=== PATIENT | female | born 1975 ===

== ENCOUNTER 2017-04-07 15:53 | Emergency (ER) | payer OTHER ==
[2017-04-07 16:04] VITALS: BMI 31.4
[2017-04-07 16:07] VITALS: TEMP 99.3
[2017-04-07] MEDS ORDERED: Sodium Chloride 0.9% 1,000 ML IV STA (16:50)
[2017-04-07 17:05] LABS: ADD MANUAL DIFF? NO
--- NOTE | 2017-04-07 17:09 | ED PDOC ---
Arrival/HPI - General Chief Complaint: Headache Time Seen by Provider: 04/07/17 16:20 Historian: Patient - History of Present Illness Narrative History of Present Illness (Text): 04/07/17 16:54 42yo female with PMHx of Asthma present with complaint of nausea, occipital headache, blurry vision and dizziness. States she was seen here last year for same complaint and was referred to ENT. she saw ENT and was told that everything was normal. States her symptoms started yesterday. she did not take any medication for her symptoms. She denies photophobia, vomiting, focal weakness, abdominal pain, diarrhea, sick contact, aphasia, dysarthria, trauma, any other complaint. Past Medical History - Provider Review Nursing Documentation Reviewed: Yes - Infectious Disease Hx of Infectious Diseases: None - Tetanus Immunization Tetanus Immunization: Unknown - Cardiac Hx Cardiac Disorders: No - Pulmonary Hx Respiratory Disorders: Yes Hx Asthma: Yes - Neurological Hx Neurological Disorder: No - HEENT Hx HEENT Disorder: No - Renal Hx Renal Disorder: No Other/Comment: kidney infection - Endocrine/Metabolic Hx Endocrine Disorders: No - Hematological/Oncological Hx Blood Disorders: Yes Hx Anemia: Yes Hx Blood Transfusions: Yes (january 2014) Hx Blood Transfusion Reaction: No - Integumentary Hx Dermatological Disorder: No Hx Basal Cell Carcinoma: No - Musculoskeletal/Rheumatological Hx Musculoskeletal Disorders: No Hx Falls: No - Gastrointestinal Hx Gastrointestinal Disorders: Yes Hx Gastritis: Yes Hx Gastroesophageal Reflux: Yes - Genitourinary/Gynecological Hx Genitourinary Disorders: No - Psychiatric Hx Psychophysiologic Disorder: No Hx Substance Use: No - Past Surgical History Past Surgical History: No Previous - Surgical History Hx Hysterectomy: Yes Other/Comment: laparoscopy - Anesthesia Hx Anesthesia: Yes Hx Anesthesia Reactions: No - Suicidal Assessment Feels Threatened In Home Enviroment: No Family/Social History - Physician Review Nursing Documentation Reviewed: Yes Family/Social History: Unknown Family HX Smoking Status: Never Smoked Hx Alcohol Use: No Hx Substance Use: No Hx Substance Use Treatment: No Allergies/Home Meds Allergies/Adverse Reactions: Allergies Penicillins Allergy (Verified 04/07/17 16:04) RASH shell fish Allergy (Uncoded 04/07/17 16:04) PAIN Home Medications: Home Meds Medication Instructions Recorded Confirmed Dexlansoprazole [Dexilant] 60 mg PO TID 12/16/16 04/07/17 Fluticasone Nasal [Flonase] 1 spr IN DAILY 12/16/16 04/07/17 Levocetirizine Dihydrochloride 5 mg PO HS 12/16/16 04/07/17 [Xyzal] Montelukast Sodium [Singulair] 20 mg PO HS 12/16/16 04/07/17 Naproxen [Naprosyn] 500 mg PO BID 12/16/16 04/07/17 Sucralfate [Carafate] 1 gm PO TID 12/16/16 04/07/17 Albuterol HFA [Ventolin HFA 90 1 inh INH TID 04/07/17 04/07/17 mcg/actuation (8 g)] Famotidine [Pepcid] 40 mg PO TID 04/07/17 04/07/17 Mometasone/Formoterol [Dulera 200 1 inh INH BID 04/07/17 04/07/17 Mcg/5 Mcg Inhaler] Tiotropium [place] [Spiriva 1 inh INH BID 04/07/17 04/07/17 Respimat] Review of Systems - Physician Review All systems were reviewed & negative as marked: Yes - Review of Systems Constitutional: Normal Eyes: Normal ENT: Normal Respiratory: Normal Cardiovascular: Normal Gastrointestinal: Nausea. absent: Abdominal Pain, Constipation, Diarrhea, Vomiting, Hematochezia, Hematemesis Genitourinary Female: Normal Musculoskeletal: Normal Skin: Normal Neurological: Headache, Dizziness Endocrine: Normal Hemo/Lymphatic: Normal Psychiatric: Normal Physical Exam Vital Signs Reviewed: Yes Vital Signs Temp Pulse Resp BP Pulse Ox 04/07/17 21:04 80 16 117/82 96 04/07/17 20:00 78 17 118/81 96 04/07/17 17:43 79 18 115/79 95 04/07/17 16:04 99.3 F 77 16 117/82 95 Temperature: Afebrile Blood Pressure: Normal Pulse: Regular Respiratory Rate: Normal Appearance: Positive for: Well-Appearing, Non-Toxic, Comfortable Pain Distress: None Mental Status: Positive for: Alert and Oriented X 3 - Systems Exam Head: Present: Atraumatic, Normocephalic Pupils: Present: PERRL Extroacular Muscles: Present: EOMI Conjunctiva: Present: Normal Mouth: Present: Moist Mucous Membranes Neck: Present: Normal Range of Motion Respiratory/Chest: Present: Clear to Auscultation, Good Air Exchange. No: Respiratory Distress, Accessory Muscle Use Cardiovascular: Present: Regular Rate and Rhythm, Normal S1, S2. No: Murmurs Abdomen: Present: Normal Bowel Sounds. No: Tenderness, Distention, Peritoneal Signs, Rebound, Guarding, McBurney's Point Tender, Rovsing's Sign Present Back: Present: Normal Inspection Upper Extremity: Present: Normal Inspection. No: Cyanosis, Edema Lower Extremity: Present: Normal Inspection. No: Edema Neurological: Present: GCS=15, CN II-XII Intact, Speech Normal, Motor Func Grossly Intact, Normal Sensory Function, Normal Cerebellar Funct, Norm Deep Tendon Reflexes, Gait Normal, Memory Normal, Other (No focal neurological weakness) Skin: Present: Warm, Dry, Normal Color. No: Rashes Psychiatric: Present: Alert, Oriented x 3, Normal Insight, Normal Concentration Medical Decision Making ED Course and Treatment: 04/10/17 12:[address] was negative and lab was unremarkable. Result was DW the pt,. She was DC home with [facility] and referred to a neurologist. - Lab Interpretations Lab Results: 04/07/17 17:00 04/07/17 17:00 Lab Results 04/07/17 18:00: Urine Color Yellow, Urine Appearance Clear, Urine pH 6.0, Ur Specific [place] 1.025, Urine Protein Negative, Urine Glucose (UA) Negative, Urine Ketones Negative, Urine Blood Trace-lysed H, Urine Nitrate Negative, Urine Bilirubin Negative, Urine Urobilinogen 0.2, Ur Leukocyte Esterase Negative , Urine RBC 0 - 2, Urine WBC 0 - 2, Ur Epithelial Cells 0 - 2, Urine Bacteria Occ 04/07/17 17:00: Sodium 141, Potassium 4.4, Chloride 106, Carbon Dioxide 24, Anion Gap 15, BUN 18, Creatinine 0.7, Est GFR ( Amer) > 60, Est GFR (Non- Af Amer) > 60, Random Glucose 79, Calcium 9.2, Total Bilirubin 0.9, AST 36, ALT 39, Alkaline Phosphatase 49, Lactate Dehydrogenase 627, Total Creatine Kinase 154, Troponin I < 0.01, Total Protein 7.8, Albumin 4.2, Globulin 3.7, Albumin/ Globulin Ratio 1.1, Lipase 156 04/07/17 17:00: PT 10.7, INR 0.99, APTT 26.3 04/07/17 17:00: WBC 7.5, RBC 4.25, Hgb 13.0, Hct 38.3, MCV 90.1, MCH 30.6, MCHC 33.9, RDW 13.1, Plt Count 285, MPV 9.3, Gran % 58.4, Lymph % (Auto) 32.5, [place] % (Auto) 6.5 H, Eos % (Auto) 2.3, Baso % (Auto) 0.3, Gran # 4.39, Lymph # 2.4, [place] # 0.5, Eos # 0.2, Baso # 0.02 - RAD Interpretation Radiology Orders: 04/07/17 18:16 HEAD W/O CONTRAST [CT] Stat - Medication Orders Current Medication Orders: Discontinued Medications Sodium Chloride (Sodium Chloride 0.9%) 1,000 mls @ 999 mls/hr IV .Q1H1M STA Stop: 04/07/17 17:50 Last Admin: 04/07/17 17:04 Dose: 999 mls/hr Ketorolac Tromethamine (Toradol) 30 mg IVP STAT STA Stop: 04/07/17 18:03 Last Admin: 04/07/17 18:13 Dose: 30 mg Meclizine HCl (Antivert) 25 mg PO STAT STA Stop: 04/07/17 16:51 Last Admin: 04/07/17 17:08 Dose: 25 mg Metoclopramide HCl (Reglan) 10 mg IVP STAT STA Stop: 04/07/17 16:51 Last Admin: 04/07/17 17:07 Dose: 10 mg Disposition/Present on Arrival - Present on Arrival Any Indicators Present on Arrival: No History of DVT/PE: No History of Uncontrolled Diabetes: No Urinary Catheter: No History of Decub. Ulcer: No History Surgical Site Infection Following: None - Disposition Have Diagnosis and Disposition been Completed?: Yes Diagnosis: Headache, Nausea & vomiting Disposition: HOME/ ROUTINE Disposition Time: 20:30 Patient Plan: Discharge Condition: STABLE Discharge Instructions (ExitCare): Acute Headache (ED) Referrals: Kia Glez MD [Primary Care Provider] - Follow up with primary
[2017-04-07 17:14] LABS: BASO # 0.02 K/mm3 (0.0-2.0); BASO % 0.3 % (0.0-3.0); EOS # 0.2 (0.0-0.7); EOS % 2.3 % (1.5-5.0); GRAN # 4.39 (1.4-6.5); GRAN % 58.4 % (50.0-68.0); HEMATOCRIT 38.3 % (36.0-48.0); LYMPH # 2.4 (1.2-3.4); LYMPH % 32.5 % (22.0-35.0); MEAN CELL VOLUME 90.1 fL (80.0-105.0); MEAN CORPUSCULAR HEMOGLOBIN 30.6 pg (25.0-35.0); MEAN CORPUSCULAR HGB CONC 33.9 g/dl (31.0-37.0); MEAN PLATELET VOLUME 9.3 fl (7.0-11.0); MONO # 0.5 (0.1-0.6); MONO % 6.5 % (1.0-6.0); PLATELET COUNT 285 10^3/uL (120.0-450.0); RED CELL DISTRIBUTION WIDTH 13.1 % (11.5-14.5); WHITE BLOOD COUNT 7.5 10^3/ul (4.5-11.0)
[2017-04-07 17:21] LABS: ALB/GLOB RATIO 1.1 (1.1-1.8); ALKALINE PHOSPHATASE 49 U/L (38-133); ALT/SGPT 39 U/L (7-56); AST/SGOT 36 U/L (15-39); BILIRUBIN,TOTAL 0.9 mg/dL (0.2-1.3); BLOOD UREA NITROGEN 18 mg/dL (7-21); CALCIUM 9.2 mg/dL (8.4-10.5); CARBON DIOXIDE 24 mmol/L (21-33); CHLORIDE 106 mmol/L (98-107); GFR AFRICAN-AMERICAN > 60; GLUCOSE,RANDOM 79 mg/dL (70-110); LIPASE 156 U/L (23-300); POTASSIUM 4.4 mmol/L (3.6-5.0); SODIUM 141 mmol/L (132-148); TOTAL PROTEIN 7.8 g/dL (5.8-8.3)
[2017-04-07 17:22] LABS: INR 0.99 (0.93-1.08); PARTIAL THROMBOPLASTIN TIME 26.3 Seconds (23.7-30.8)
[2017-04-07 17:33] LABS: TROPONIN I < 0.01 ng/mL
[2017-04-07 18:31] LABS: URINE APPEARANCE CLEAR (CLEAR); URINE BILIRUBIN NEGATIVE (NEGATIVE); URINE BLOOD TRACE-LYSED (NEGATIVE); URINE COLOR YELLOW (YELLOW); URINE GLUCOSE (UA) NEGATIVE (NEGATIVE); URINE KETONE NEGATIVE (NEGATIVE); URINE LEUKOCYTE ESTERASE NEGATIVE Leu/uL (NEGATIVE); URINE PROTEIN NEGATIVE mg/dL (<30 mg/dL); URINE UROBILINOGEN 0.2 E.U./dL (<1 E.U./dL)
--- NOTE | 2017-04-07 19:31 | CT ---
EXAM: CT Head Without Intravenous Contrast CLINICAL HISTORY: 42 years old, female; Signs and symptoms; Dizziness and other: Pain; Additional info: Headache TECHNIQUE: Axial computed tomography images of the head/brain without intravenous contrast. This CT exam was performed using one or more of the following dose reduction techniques: automated exposure control, adjustment of the mA and/or kV according to patient size, and/or use of iterative reconstruction technique. EXAM DATE/TIME: 04/07/2017 6:16 PM COMPARISON: There are no prior studies for comparison. FINDINGS: Brain: Ventricles are normal in size and configuration. There is no midline shift. There are no intra-axial or extra-axial mass lesions or areas of hemorrhage. There are no abnormal fluid collections. Casey-white differentiation is maintained. Ventricles: See above. Bones: Cranial vault is intact. Soft tissues: unremarkable Sinuses: There is no acute sinusitis. Ears and mastoids: Middle ears and mastoids are unremarkable Orbits: Orbital contents are unremarkable. IMPRESSION: No acute intracranial abnormality
[2017-04-07 19:42] LABS: URINE BACTERIA OCC (NEG); URINE EPITHELIAL CELLS 0 - 2 /hpf (0-5); URINE RBC 0 - 2 /hpf (0-2); URINE WBC 0 - 2 /hpf (0-6)
[2017-04-07 21:04] VITALS: O2SAT 96
[2017-04-07 21:05] VITALS: BP 117/82; PULSE 80; RESP 16
== END 2017-04-07 21:05 | disposition home or self-care (01) ==
LOC: ED 15:53
DX: R51 Headache (principal); R11.2 Nausea with vomiting, unspecified
CPT/HCPCS: 70450; 80053; 81001; 82550; 83615; 83690; 84484; 85025; 85610; 85730; 96374; 96375; 99285; J1885; J2765; J7040

== ENCOUNTER 2017-07-07 22:22 | Emergency (ER) | payer OTHER ==
[2017-07-07 22:23] VITALS: BMI 31.4
--- NOTE | 2017-07-07 22:39 | ED PDOC ---
Arrival/HPI - General Chief Complaint: Palpitations Time Seen by Provider: 07/07/17 22:30 Historian: Patient, Family - History of Present Illness Narrative History of Present Illness (Text): 07/07/17 22:39 Luigi Horn is a 42 year old female, whose past medical history includes asthma , who presents to the Emergency department complaining of intermittent palpitations for the past 4 days. Patient denies any fever, chills, chest pain, shortness of breath, nausea, vomiting, diarrhea, urinary symptoms, back pain, neck pain, headache, dizziness, or any other complaints. Time/Duration: < week (4 days) Symptom Onset: Gradual Symptom Course: Unchanged, Intermittent Activities at Onset: Light Context: Home Past Medical History - Provider Review Nursing Documentation Reviewed: Yes - Infectious Disease Hx of Infectious Diseases: None - Tetanus Immunization Tetanus Immunization: Unknown - Reproductive Menopause: No - Cardiac Hx Cardiac Disorders: No - Pulmonary Hx Respiratory Disorders: Yes Hx Asthma: Yes - Neurological Hx Neurological Disorder: No - HEENT Hx HEENT Disorder: No - Renal Hx Renal Disorder: No Other/Comment: kidney infection - Endocrine/Metabolic Hx Endocrine Disorders: No - Hematological/Oncological Hx Blood Disorders: Yes Hx Anemia: Yes Hx Blood Transfusions: Yes (january 2014) Hx Blood Transfusion Reaction: No - Integumentary Hx Dermatological Disorder: No Hx Basal Cell Carcinoma: No - Musculoskeletal/Rheumatological Hx Musculoskeletal Disorders: No Hx Falls: No - Gastrointestinal Hx Gastrointestinal Disorders: Yes Hx Gastritis: Yes Hx Gastroesophageal Reflux: Yes Other/Comment: Hernia - Genitourinary/Gynecological Hx Genitourinary Disorders: No - Psychiatric Hx Psychophysiologic Disorder: No Hx Substance Use: No - Past Surgical History Past Surgical History: No Previous - Surgical History Hx Hysterectomy: Yes Other/Comment: laparoscopy - Anesthesia Hx Anesthesia: Yes Hx Anesthesia Reactions: No Hx Malignant Hyperthermia: No - Suicidal Assessment Feels Threatened In Home Enviroment: No Family/Social History - Physician Review Nursing Documentation Reviewed: Yes Family/Social History: Unknown Family HX Smoking Status: Never Smoked Hx Alcohol Use: No Hx Substance Use: No Hx Substance Use Treatment: No Allergies/Home Meds Allergies/Adverse Reactions: Allergies Penicillins Allergy (Verified 07/07/17 22:37) RASH shell fish Allergy (Uncoded 07/07/17 22:37) PAIN Home Medications: Home Meds Medication Instructions Recorded Confirmed Dexlansoprazole [Dexilant] 60 mg PO TID 12/16/16 04/07/17 Fluticasone Nasal [Flonase] 1 spr IN DAILY 12/16/16 04/07/17 Levocetirizine Dihydrochloride 5 mg PO HS 12/16/16 04/07/17 [Xyzal] Montelukast Sodium [Singulair] 20 mg PO HS 12/16/16 07/07/17 Sucralfate [Carafate] 1 gm PO TID 12/16/16 04/07/17 Albuterol HFA [Ventolin HFA 90 1 inh INH TID 04/07/17 07/07/17 mcg/actuation (8 g)] Famotidine [Pepcid] 40 mg PO TID 04/07/17 04/07/17 Mometasone/Formoterol [Dulera 200 1 inh INH BID 04/07/17 04/07/17 Mcg/5 Mcg Inhaler] Tiotropium [place] [Spiriva 1 inh INH BID 04/07/17 04/07/17 Respimat] Review of Systems - Physician Review All systems were reviewed & negative as marked: Yes - Review of Systems Constitutional: Normal. absent: Fevers Eyes: Normal ENT: Normal Respiratory: Normal. absent: SOB Cardiovascular: Palpitations. absent: Chest Pain Gastrointestinal: Normal. absent: Abdominal Pain, Diarrhea, Nausea, Vomiting Genitourinary Female: Normal. absent: Dysuria, Frequency, Hematuria, Urine Output Changes Musculoskeletal: Normal. absent: Back Pain, Neck Pain Skin: Normal. absent: Rash Neurological: Normal. absent: Headache, Dizziness Endocrine: Normal Hemo/Lymphatic: Normal Psychiatric: Normal Physical Exam Vital Signs Reviewed: Yes Vital Signs Temp Pulse Resp BP Pulse Ox 07/07/17 23:18 97.9 F 07/07/17 22:22 71 20 122/76 97 Temperature: Afebrile Blood Pressure: Normal Pulse: Regular Respiratory Rate: Normal Appearance: Positive for: Well-Appearing, Non-Toxic, Comfortable Pain Distress: None Mental Status: Positive for: Alert and Oriented X 3 - Systems Exam Head: Present: Atraumatic, Normocephalic Pupils: Present: PERRL Extroacular Muscles: Present: EOMI Conjunctiva: Present: Normal Mouth: Present: Moist Mucous Membranes Neck: Present: Normal Range of Motion Respiratory/Chest: Present: Clear to Auscultation, Good Air Exchange. No: Respiratory Distress, Accessory Muscle Use Cardiovascular: Present: Regular Rate and Rhythm, Normal S1, S2. No: Murmurs Abdomen: Present: Normal Bowel Sounds. No: Tenderness, Distention, Peritoneal Signs Back: Present: Normal Inspection Upper Extremity: Present: Normal Inspection. No: Cyanosis, Edema Lower Extremity: Present: Normal Inspection. No: Edema Neurological: Present: GCS=15, CN II-XII Intact, Speech Normal Skin: Present: Warm, Dry, Normal Color. No: Rashes Psychiatric: Present: Alert, Oriented x 3, Normal Insight, Normal Concentration Medical Decision Making ED Course and Treatment: 07/07/17 22:39 Impression: 42 year old female complaining of intermittent palpitations for 4 days. Differential Diagnosis included but are not limited to: palpitations Plan: -- EKG -- Chest X-ray -- Labs, cardiac enzymes, TSH, T4 -- UA -- Reassess and disposition Prior Visits: Notes and results from previous visits were reviewed. On 04/07/2017, pt was seen in the Emergency department for nausea, headache, blurry vision, and dizziness. Pt was d/c home. Progress Notes: Reviewed EKG, NSR at [address]-segment elevations or depressions, no T-wave inversions, normal intervals. 07/08/17 00:30 Labs reviewed, within normal limits. 07/08/17 00:52 On reevaluation the patient feels better and is in no acute distress. I have discussed the results and plan with the patient, who expresses understanding. Patient given the opportunity to ask question, all questions were answered and there is agreement with the plan to discharge the patient home. Patient is stable for discharge. Patient was instructed to follow up with physician/clinic in 1-2 days or return if symptoms persist/worsen or new concerning symptoms arise. Re-evaluation Time: 00:52 Reassessment Condition: Re-examined, Improved - Lab Interpretations Lab Results: 07/07/17 23:05 07/07/17 23:05 Lab Results 07/08/17 00:02: Urine Color Yellow, Urine Appearance Clear, Urine pH 6.0, Ur Specific [place] 1.025, Urine Protein Negative, Urine Glucose (UA) Negative, Urine Ketones Negative, Urine Blood Trace-lysed H, Urine Nitrate Negative, Urine Bilirubin Negative, Urine Urobilinogen 0.2, Ur Leukocyte Esterase Negative , Urine RBC Pending, Urine WBC Pending, Urine HCG, Qual Negative 07/07/17 23:05: Thyroxine (T4) 9.2, TSH 3rd Generation 1.65 07/07/17 23:05: Sodium 140, Potassium 4.0, Chloride 104, Carbon Dioxide 27, Anion Gap 13, BUN 16, Creatinine 0.9, Est GFR ( Amer) > 60, Est GFR (Non- Af Amer) > 60, Random Glucose 98, Calcium 9.2, Total Bilirubin 0.4, AST 33, ALT 36, Alkaline Phosphatase 54, Lactate Dehydrogenase 583, Total Creatine Kinase 180, Troponin I < 0.01, Total Protein 7.2, Albumin 4.3, Globulin 2.9, Albumin/ Globulin Ratio 1.5 07/07/17 23:05: WBC 6.3, RBC 4.27, Hgb 12.8, Hct 38.5, MCV 90.2, MCH 30.0, MCHC 33.2, RDW 12.9, Plt Count 287, MPV 9.1, Gran % 60.0, Lymph % (Auto) 29.4, [place] % (Auto) 7.2 H, Eos % (Auto) 3.2, Baso % (Auto) 0.2, Gran # 3.78, Lymph # 1.9, [place] # 0.5, Eos # 0.2, Baso # 0.01 I have reviewed the lab results: Yes - EKG Interpretation Interpreted by ED Physician: Yes Type: 12 lead EKG - Scribe Statement The provider has reviewed the documentation as recorded by the Sin Meade Provider Scribe Attestation: All medical record entries made by the Sin were at my direction and personally dictated by me. I have reviewed the chart and agree that the record accurately reflects my personal performance of the history, physical exam, medical decision making, and the department course for this patient. I have also personally directed, reviewed, and agree with the discharge instructions and disposition. Disposition/Present on Arrival - Present on Arrival Any Indicators Present on Arrival: No History of DVT/PE: No History of Uncontrolled Diabetes: No Urinary Catheter: No History of Decub. Ulcer: No History Surgical Site Infection Following: None - Disposition Have Diagnosis and Disposition been Completed?: Yes Diagnosis: Palpitations Disposition: HOME/ ROUTINE Disposition Time: 00:53 Patient Problems: Current Active Problems Problem Status Onset Palpitations Acute Condition: GOOD Discharge Instructions (ExitCare): Palpitations (ED) Referrals: Kia Glez MD [Primary Care Provider] - Follow up with primary Forms: [employer] (N[place]ien)
[2017-07-07 23:17] LABS: BASO # 0.01 K/mm3 (0.0-2.0); BASO % 0.2 % (0.0-3.0); EOS # 0.2 (0.0-0.7); EOS % 3.2 % (1.5-5.0); GRAN # 3.78 (1.4-6.5); HEMOGLOBIN 12.8 g/dL (12.0-16.0); LYMPH # 1.9 (1.2-3.4); LYMPH % 29.4 % (22.0-35.0); MEAN CELL VOLUME 90.2 fl (80.0-105.0); MEAN CORPUSCULAR HGB CONC 33.2 g/dl (31.0-37.0); MEAN PLATELET VOLUME 9.1 fl (7.0-11.0); MONO # 0.5 (0.1-0.6); MONO % 7.2 % (1.0-6.0); PLATELET COUNT 287 10^3/uL (120.0-450.0); RBC 4.27 10^6/uL (3.5-6.1); RED CELL DISTRIBUTION WIDTH 12.9 % (11.5-14.5); WHITE BLOOD COUNT 6.3 10^3/ul (4.5-11.0)
[2017-07-07 23:19] VITALS: TEMP 97.9
[2017-07-07 23:27] LABS: ALB/GLOB RATIO 1.5 (1.1-1.8); ALBUMIN 4.3 g/dL (3.0-4.8); ALT/SGPT 36 U/L (7-56); AST/SGOT 33 U/L (15-39); BLOOD UREA NITROGEN 16 mg/dL (7-21); CALCIUM 9.2 mg/dL (8.4-10.5); GFR AFRICAN-AMERICAN > 60; GFR NON-AFRICAN AMERICAN > 60
[2017-07-07 23:42] LABS: TROPONIN I < 0.01 ng/mL
[2017-07-07 23:44] LABS: T4 9.2 ug/dL (5.5-11.0)
[2017-07-08 01:02] LABS: URINE BILIRUBIN NEGATIVE (NEGATIVE); URINE BLOOD TRACE-LYSED (NEGATIVE); URINE GLUCOSE (UA) NEGATIVE (NEGATIVE); URINE LEUKOCYTE ESTERASE NEGATIVE Leu/uL (NEGATIVE); URINE NITRATE NEGATIVE (NEGATIVE); URINE PROTEIN NEGATIVE mg/dL (<30 mg/dL); URINE UROBILINOGEN 0.2 E.U./dL (<1 E.U./dL)
[2017-07-08 01:05] LABS: HCG,QUALITATIVE URINE NEGATIVE (NEGATIVE)
[2017-07-08 01:08] LABS: URINE APPEARANCE CLEAR (CLEAR); URINE COLOR YELLOW (YELLOW)
[2017-07-08 01:13] LABS: URINE BACTERIA MOD (NEG); URINE RBC 0 - 2 /hpf (0-2); URINE WBC 0 - 2 /hpf (0-6)
[2017-07-08 01:16] VITALS: BP 123/65; PULSE 65; RESP 16; O2SAT 95
--- NOTE | 2017-07-08 11:52 | CARD ---
APPROVED REPORT EKG Measurement Heart [id number] [place] [id number] <Conclusion> Normal sinus rhythm Normal ECG
== END 2017-07-08 01:15 | disposition home or self-care (01) ==
LOC: ED 22:22
DX: R00.2 Palpitations (principal); J45.909 Unspecified asthma, uncomplicated; D64.9 Anemia, unspecified

== ENCOUNTER 2017-11-01 18:19 | Emergency (ER) | payer OTHER ==
[2017-11-01 18:32] VITALS: BP 122/84; PULSE 78; RESP 18; TEMP 98.2; O2SAT 97; BMI 29.7
--- NOTE | 2017-11-01 18:34 | ED PDOC ---
Arrival/HPI - General Time Seen by Provider: 11/01/17 18:28 Historian: Patient - History of Present Illness Narrative History of Present Illness (Text): 11/01/17 18:30 42 y/o female, pmh including migraine/asthma, post menopausal, penicillin allergy, c/o itching rash on the whole body x 2 days after exposed to the cat hair. Itching, no pain, no fever or chills, no chest pain or shortness of breath, no other medical or psychological complaints. Past Medical History - Provider Review Nursing Documentation Reviewed: Yes - Infectious Disease Hx of Infectious Diseases: None - Tetanus Immunization Tetanus Immunization: Unknown - Reproductive Currently : No - Cardiac Hx Cardiac Disorders: No - Pulmonary Hx Respiratory Disorders: Yes Hx Asthma: Yes - Neurological Hx Neurological Disorder: No - HEENT Hx HEENT Disorder: No - Renal Hx Renal Disorder: No Other/Comment: kidney infection - Endocrine/Metabolic Hx Endocrine Disorders: No - Hematological/Oncological Hx Blood Disorders: Yes Hx Anemia: Yes Hx Blood Transfusions: Yes (january 2014) Hx Blood Transfusion Reaction: No - Integumentary Hx Dermatological Disorder: No Hx Basal Cell Carcinoma: No - Musculoskeletal/Rheumatological Hx Musculoskeletal Disorders: No Hx Falls: No - Gastrointestinal Hx Gastrointestinal Disorders: Yes Hx Gastritis: Yes Hx Gastroesophageal Reflux: Yes Other/Comment: Hernia - Genitourinary/Gynecological Hx Genitourinary Disorders: No - Psychiatric Hx Psychophysiologic Disorder: No Hx Substance Use: No - Past Surgical History Past Surgical History: No Previous - Surgical History Hx Hysterectomy: Yes Other/Comment: laparoscopy - Anesthesia Hx Anesthesia: Yes Hx Anesthesia Reactions: No Hx Malignant Hyperthermia: No - Suicidal Assessment Feels Threatened In Home Enviroment: No Family/Social History - Physician Review Nursing Documentation Reviewed: Yes Family/Social History: Unknown Family HX Smoking Status: Never Smoked Hx Alcohol Use: No Hx Substance Use: No Hx Substance Use Treatment: No Allergies/Home Meds Allergies/Adverse Reactions: Allergies Penicillins Allergy (Verified 11/01/17 18:32) RASH shell fish Allergy (Uncoded 11/01/17 18:32) PAIN Home Medications: Home Meds Medication Instructions Recorded Confirmed Dexlansoprazole [Dexilant] 60 mg PO TID 12/16/16 04/07/17 Fluticasone Nasal [Flonase] 1 spr IN DAILY 01/25/17 05/17/17 Levocetirizine Dihydrochloride 5 mg PO HS 12/16/16 04/07/17 [Xyzal] Montelukast Sodium [Singulair] 20 mg PO HS 12/16/16 07/07/17 Sucralfate [Carafate] 1 gm PO TID 12/16/16 04/07/17 Albuterol HFA [Ventolin HFA 90 1 inh INH TID 04/07/17 07/07/17 mcg/actuation (8 g)] Famotidine [Pepcid] 40 mg PO TID 04/07/17 04/07/17 Mometasone/Formoterol [Dulera 200 1 inh INH BID 04/07/17 04/07/17 Mcg/5 Mcg Inhaler] Tiotropium [place] [Spiriva 1 inh INH BID 04/07/17 04/07/17 Respimat] Review of Systems - Review of Systems Constitutional: absent: Fatigue, Fevers Eyes: absent: Vision Changes ENT: absent: Hearing Changes Respiratory: absent: SOB, Cough Cardiovascular: absent: Chest Pain Gastrointestinal: absent: Abdominal Pain, Nausea, Vomiting Skin: Rash, Pruritis Neurological: absent: Headache, Dizziness Psychiatric: absent: Anxiety, Depression, Suicidal Ideation Physical Exam Vital Signs Temp Pulse Resp BP Pulse Ox 11/01/17 18:33 98.2 F 78 18 122/84 97 11/01/17 18:32 98.2 F 78 18 122/84 97 - Systems Exam Head: Present: Atraumatic, Normocephalic Pupils: Present: PERRL Extroacular Muscles: Present: EOMI Conjunctiva: Present: Normal Mouth: Present: Moist Mucous Membranes Neck: Present: Normal Range of Motion Respiratory/Chest: Present: Clear to Auscultation, Good Air Exchange. No: Respiratory Distress, Accessory Muscle Use Cardiovascular: Present: Regular Rate and Rhythm, Normal S1, S2. No: Murmurs Abdomen: Present: Normal Bowel Sounds. No: Tenderness, Distention, Peritoneal Signs Back: Present: Normal Inspection Upper Extremity: Present: Normal Inspection. No: Cyanosis, Edema Lower Extremity: Present: Normal Inspection. No: Edema Neurological: Present: GCS=15, Speech Normal, Motor Func Grossly Intact, Gait Normal, Memory Normal Skin: Present: Warm, Dry, Rashes (+resolving hives noted on the generalized body approx. [id number] with no central insect bite carline, no cellulitis or streaking, no ulcers. ), Normal Color Psychiatric: Present: Alert, Oriented x 3, Normal Insight, Normal Concentration Medical Decision Making ED Course and Treatment: 11/01/17 18:36 -benadryl/pepcid/prednisone -observe and reassess. 11/01/17 19:31 -Pt. feels much better -Discharge home with benadryl, pepcid, prednisone, avoid contact with possible allergen, follow up with your own pmd and manometer technician within 2 days, return to the ER for any new or worsening signs or symptoms. - Medication Orders Current Medication Orders: Discontinued Medications Diphenhydramine HCl (Benadryl) 50 mg IM STAT STA Stop: 11/01/17 18:37 Last Admin: 11/01/17 18:49 Dose: 50 mg IM Administration Charges Document 11/01/17 18:49 [email or web address] (Rec: 11/01/17 18:49 [email or web address] [facility] [place]- OPERATOR1) Injection Site MAR Injection Site Left Deltoid Charges for Administration # of IM Administrations 1 Famotidine (Pepcid) 20 mg PO STAT STA Stop: 11/01/17 18:37 Last Admin: 11/01/17 18:49 Dose: 20 mg Prednisone (Prednisone Tab) 60 mg PO STAT ONE Stop: 11/01/17 18:37 Last Admin: 11/01/17 18:49 Dose: 60 mg - PA / STERILE PROCESSING TECH / Resident Statement /DO has reviewed & agrees with the documentation as recorded. Disposition/Present on Arrival - Present on Arrival Any Indicators Present on Arrival: No History of DVT/PE: No History of Uncontrolled Diabetes: No Urinary Catheter: No History of Decub. Ulcer: No History Surgical Site Infection Following: None - Disposition Have Diagnosis and Disposition been Completed?: Yes Diagnosis: Hives Disposition: HOME/ ROUTINE Disposition Time: 18:36 Patient Plan: Discharge Patient Problems: Current Active Problems Problem Status Onset Hives Acute Condition: GOOD Additional Instructions: -Discharge home with benadryl, pepcid, prednisone, avoid contact with possible allergen, follow up with your own pmd and manometer technician within 2 days, return to the ER for any new or worsening signs or symptoms. Prescriptions: DiphenhydrAMINE [Benadryl] 50 mg PO QID PRN #20 cap PRN Reason: Other Famotidine [Pepcid] 20 mg PO BID #10 tab Prednisone 50 mg PO DAILY #4 tab Referrals: Julio Bone MD [Staff Provider] - Follow up with primary Forms: WORK NOTE
[2017-11-01] MEDS ORDERED: DiphenhydrAMINE 50 mg/ml Inj IM STA (18:36)
[2017-11-01] MEDS ORDERED: Albuterol-Ipratrop 3 mg / 0.5 (3 ml) UD IH STA ×2 (20:08)
== END 2017-11-01 20:54 | disposition home or self-care (01) ==
LOC: ED 18:19
DX: L50.9 Urticaria, unspecified (principal)
CPT/HCPCS: 96372; 99283; J1200